=== PATIENT | female | born 1995 | race Caucasian/White ===

== ENCOUNTER 2016-07-23 10:26 | Emergency (ER) | payer OTHER ==
--- NOTE | ~2016-07-23 | CR63 ---
[facility] A Service of [facility] RADIOLOGY TEXT RESULTS PATIENT: TRACIE CLARK LOCATION: [facility] : [birth year] UNIT #: [id number] AGE: [address]: Daisha Arias SEX: F ORDER DR: [id number] [facility] [address] [place], [place] [address] [id number] MR#: [id number] Acc #: [id number] NAME: TRACIE CLARK : 1995 SEX: F STUDY DATE/TIME: 07/23/2016 09:52 UNIT: [facility] ROOM: STUDY DESCRIPTION: CR Chest 2 View Attending Physician: Daisha Arias P.A.-C. Ordering Physician: Daisha Arias P.A.-C. Primary Care Physician: Dayton Bolden M.D. MEDICAL IMAGING REPORT This report is preliminary unless electronic signature is present EXAM Chest 2 views, 07/23/2016 09:52 hours HISTORY 21-year-old woman with 2-day history of shortness of air. COMPARISON None FINDINGS Portable upright chest demonstrates normal cardiac, mediastinal and hilar contours. The lungs are well expanded and clear of acute densities. Benign calcified granulomatous changes are present. There is no pleural effusion or pneumothorax. IMPRESSION 1. No acute cardiopulmonary findings. 2. Benign calcified granulomatous changes are present. Dictated by... Aundrea Tomas M.D. THIS IS AN ELECTRONICALLY VERIFIED REPORT Aundrea Tomas M.D. at 07/23/2016 2:27 PM Jose Miguel TD: 07/23/2016 13:39 JOB #: [id number] MEDICAL IMAGING REPORT COPY
[2016-07-23 10:17] LABS: INFLUENZA A NEG (NEG)
[2016-07-23 10:18] LABS: INFLUENZA B NEG (NEG)
[~2016-07-23 10:26] MED LIST: AUGMENTIN PO; BIRTH CONTROL PILL PO; DAILY VALUE1 EACH; EC-NAPROSYN500 MG PO; FLEXERIL10 MG PO; GENTAK3.5 GM OP; NORCO1 TAB 10/3; PHENERGAN25 M1 PO; PHENERGAN25 MG PO; PRENATAL1 TA1 PO; PRILOSEC10 M1 PO; SERTRALINE HCL50 MG; VOLTAREN75 MG PO; ZOFRAN ODT4 MG/UDTAB PO
== END 2016-07-23 11:09 | disposition home or self-care (01) ==
LOC: CFTX 10:26
PROVIDERS: Physician Assistant
DX: J06.9 Acute upper respiratory infection, unspecified (principal); F32.9 Major depressive disorder, single episode, unspecified; F17.210 Nicotine dependence, cigarettes, uncomplicated; Z79.899 Other long term (current) drug therapy
CPT/HCPCS: 71020; 87804; 94640; 99284

== ENCOUNTER 2016-10-28 01:38 | Emergency (ER) | payer OTHER | END 2016-10-28 03:21 | disposition home or self-care (01) | LOC: SED 01:38 | DX: H10.32 Unspecified acute conjunctivitis, left eye (principal); H11.422 Conjunctival edema, left eye; F17.210 Nicotine dependence, cigarettes, uncomplicated | CPT/HCPCS: 99283 ==